=== PATIENT | female | born 1975 | race African-American/Black ===

== ENCOUNTER 2017-09-02 21:58 | Emergency (ER) | payer SELFPAY ==
[~2017-09-02] VITALS: Ht 172.7 cm; Wt 65.8 kg
[2017-09-02 21:58] VITALS: BP 127/90
--- NOTE | 2017-09-02 21:58 | NUR ---
PATIENT [employer] [employer] TO ER [facility].
--- NOTE | 2017-09-02 22:00 | NUR ---
PT REPORTS SI. [place] [employer] AT BEDSIDE FOR EVALUATION.
--- NOTE | 2017-09-02 22:10 | NUR ---
PATIENT MOVED TO ER CHAIR E.
[2017-09-02 22:46] VITALS: BP 122/82
--- NOTE | 2017-09-02 22:48 | NUR ---
Patient discharged with v/s stable. Written and verbal after care instructions given and explained. Patient alert, oriented and verbalized understanding of instructions. Police with in custody. All questions addressed prior to discharge. ID band removed. Patient advised to follow up with PMD.NO Rx given. Patient educated on indication of medication including possible reaction and side effects. Opportunity to ask questions provided and answered.
== END 2017-09-02 22:48 ==
LOC: MED 21:58
DX: Z02.89 Encounter for other administrative examinations (principal); F31.9 Bipolar disorder, unspecified
CPT/HCPCS: 93005; 99283